=== PATIENT | male | born 1940 | race Caucasian/White ===

== ENCOUNTER 2019-03-21 22:20 | Emergency (ER) | payer OTHER, MEDICARE ==
[2019-03-21 22:36] VITALS: BP 134/82
[2019-03-22] MEDS ORDERED: LIDOCAINE 2% INJ (20 MG/ML) 20 ML MDV INJ ONE (00:27)
[2019-03-22] MEDS ORDERED: DIPH/PERTUSS(ACELL)/TETANUS VAC/PF 0.5 ML SYR (>=10YO) IM ONE (00:28)
[2019-03-22] MEDS ORDERED: LIDOCAINE 1% INJ-PF (10 MG/ML) 30 ML SDV INJ ONE (00:28)
[2019-03-22] MEDS ORDERED: KETOROLAC TROMETHAMINE 60 MG/2 ML SDV IM ONE (01:06)
[2019-03-22] MEDS ORDERED: LIDOCAINE 4%/TETRACAINE 0.5%/EPI 0.18% 5 ML TOPICAL SOLN TOP ONE ×2 (01:13→01:35)
--- NOTE | 2019-03-22 01:19 | RADIOLOGY REPORT (SQ) ---
CLINICAL HISTORY: dog bite COMPARISON: None. TECHNIQUE: XR HAND 3 OR MORE VIEWS 03/22/2019 12:29 AM CDT FINDINGS: There is no fracture. Joint spaces are preserved. Soft tissues are unremarkable. IMPRESSION: No acute osseous findings.
--- NOTE | 2019-03-22 01:22 | RADIOLOGY REPORT (SQ) ---
CLINICAL HISTORY: dog bite COMPARISON: None. TECHNIQUE: XR HAND 3 OR MORE VIEWS 03/22/2019 12:29 AM CDT FINDINGS: There is no fracture. Joint spaces are preserved. There is a soft tissue laceration in the distal forearm. IMPRESSION: No acute osseous findings.
[2019-03-22] MEDS ORDERED: LIDOCAINE 1%/EPINEPHRINE INJ 20 ML VIAL INJ ONE (01:48)
[2019-03-22] MEDS ORDERED: LIDOCAINE 1%/EPINEPHRINE INJ 20 ML VIAL ONE (01:49)
--- NOTE | 2019-03-22 02:33 | ER Document Report ---
ED Animal Bite - General Chief Complaint: Dog Bite Stated Complaint: DOG BITE, LEFT FOREARM AND RIGHT HAND Time Seen by Provider: 03/22/19 00:27 Mode of Arrival: Ambulatory Information source: Patient TRAVEL OUTSIDE OF THE [place] IN LAST 30 DAYS: No - HPI Notes: Patient presents with a complaint of bilateral arm pain. He has pain to both hands and the left forearm. The pain is secondary to a dog bite. The dog is known it is his daughters. The dog's shots are up-to-date. Patient complains of severe pain at all the sites. They are worse with movement and better with rest. Pain is rating up both arms. It is constant and sharp. Patient's tetanus is not up-to-date. Past Medical History - General Information source: Patient - Social History Smoking Status: Never Smoker Frequency of alcohol use: None Drug Abuse: None Family History: Reviewed & Not Pertinent Review of Systems - Review of Systems Constitutional: denies: Chills, Fever Cardiovascular: denies: Chest pain, Palpitations Respiratory: denies: Cough, Short of breath Gastrointestinal: denies: Diarrhea, Vomiting -: Yes All other systems reviewed and negative Physical Exam - Vital signs Vitals: Temp Pulse Resp BP Pulse Ox 97.9 F 50 L 18 134/82 H 98 03/21/19 22:32 03/21/19 22:32 03/21/19 22:32 03/21/19 22:32 03/21/19 22:32 Interpretation: Normal - General General appearance: Appears well, Alert - HEENT Head: Normocephalic, Atraumatic Eyes: Normal Pupils: PERRL - Respiratory Respiratory status: No respiratory distress Chest status: Nontender Breath sounds: Normal Chest palpation: Normal - Cardiovascular Rhythm: Regular Heart sounds: Normal auscultation Murmur: No - Abdominal Inspection: Normal Distension: No distension Bowel sounds: Normal Tenderness: Nontender Organomegaly: No organomegaly - Back Back: Normal, Nontender - Extremities General upper extremity: Normal inspection, Nontender, Normal color, Normal ROM, Normal temperature General lower extremity: Normal inspection, Nontender, Normal color, Normal ROM, Normal temperature, Normal weight bearing. No: Carlin's sign - Neurological Neuro grossly intact: Yes Cognition: Normal Orientation: AAOx4 [place] Coma Scale Eye Opening: Spontaneous [place] Coma Scale Verbal: Oriented [place] Coma Scale Motor: Obeys Commands [place] Coma Scale Total: 15 Speech: Normal Motor strength normal: LUE, RUE, LLE, RLE Sensory: Normal - Psychological Associated symptoms: Normal affect, Normal mood - Skin Skin Temperature: Warm Skin Moisture: Dry Skin Color: Other - Skin is unremarkable other than areas of dog bite. see lac note Course - Vital Signs Vital signs: Temp Pulse Resp BP Pulse Ox 97.9 F 50 L 18 134/82 H 98 03/21/19 22:32 03/21/19 22:32 03/21/19 22:32 03/21/19 22:32 03/21/19 22:32 - Diagnostic Test Radiology reviewed: Image reviewed, Reports reviewed Discharge - Discharge Clinical Impression: Dog bite of left hand Qualifiers: Encounter type: initial encounter Qualified Code(s): S61.452A - Open bite of left hand, initial encounter; W54.0XXA - Bitten by dog, initial encounter Dog bite of right hand Qualifiers: Encounter type: initial encounter Qualified Code(s): S61.451A - Open bite of right hand, initial encounter; W54.0XXA - Bitten by dog, initial encounter Dog bite of left forearm Qualifiers: Encounter type: initial encounter Qualified Code(s): S51.852A - Open bite of left forearm, initial encounter; W54.0XXA - Bitten by dog, initial encounter Condition: Stable Disposition: HOME, SELF-CARE Instructions: Animal Bites ([facility]) Additional Instructions: Please call your doctor first thing in the morning to schedule a recheck. Please have the wounds examined in 10 to 12 days for possible suture removal. These wounds are at high risk for infection. If you notice redness spreading up the arms, pus from the wounds or increasing pain or fevers please seek a medical provider for a recheck. Prescriptions: Amox Tr/Potassium Clavulanate [Augmentin 875-125 Tablet] 1 tab PO BID 10 Days #20 tablet Tramadol HCl [Ultram 50 mg Tablet] 50 mg PO Q6 3 Days #12 tab
[2019-03-22] MEDS ORDERED: AMOXICILLIN TR/POT CLAVULANATE 500-125 MG TAB PO ONE (02:42)
== END 2019-03-22 03:01 | disposition home or self-care (01) ==
LOC: ER 22:20
DX: S61.452A Open bite of left hand, initial encounter (principal); S61.451A Open bite of right hand, initial encounter; S51.852A Open bite of left forearm, initial encounter; W54.0XXA Bitten by dog, initial encounter; Z23 Encounter for immunization
CPT/HCPCS: 99283; 96372; 90471; 73130 ×2; 90715; 12004; J3490 ×3; J1885